=== PATIENT | female | born 1990 | race African-American/Black ===

== ENCOUNTER 2020-10-12 12:26 | Emergency (ER) | payer OTHER, SELFPAY ==
[2020-10-12 12:35] VITALS: BP 134/76; PULSE 71; RESP 18; TEMP 36.3; O2SAT 99
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
--- NOTE | 2020-10-12 13:09 | PC.NURSE ---
Rt arm strengths < Lt arm strengths.
[2020-10-12] MEDS: TETANUS,DIPHTHERIA,AC PERTUSSIS ADULT (0.5 ML) BOOSTRIX IM (13:15)
--- NOTE | 2020-10-12 13:23 | PC.NURSE ---
Pt denies nausea/ vomiting, or loss of bowel or bladder.
== END 2020-10-12 13:20 | disposition home or self-care (01) ==
PROVIDERS: Emergency Provider Nurse Practitioner
DX: S51.851A Open bite of right forearm, initial encounter (principal); S21.051A Open bite of right breast, initial encounter; Y04.1XXA Assault by human bite, initial encounter; S00.03XA Contusion of scalp, initial encounter; Y04.0XXA Assault by unarmed brawl or fight, initial encounter; Z23 Encounter for immunization
CPT/HCPCS: 90471; 90715; 99203; G0463